=== PATIENT | female | born 1975 ===

== ENCOUNTER 2017-11-15 13:03 | Emergency (ER) | payer OTHER ==
[2017-11-15] MEDS ORDERED: Sodium Chloride 0.9% 1,000 ML IV STA (13:54)
[2017-11-15 14:36] LABS: SQUAMOUS EPITHIAL < 1 /hpf (0-5); URINE BILIRUBIN NEGATIVE (NEGATIVE); URINE BLOOD SMALL (NEGATIVE); URINE CLARITY SLIGHTY-CLOUDY (Clear); URINE COLOR YELLOW (YELLOW); URINE GLUCOSE (UA) NEG (Normal); URINE LEUKOCYTE ESTERASE NEG Leu/uL (Negative); URINE PROTEIN NEGATIVE (NEGATIVE); URINE UROBILINOGEN 0.2-1.0 mg/dL (0.2-1.0)
[2017-11-15 14:45] LABS: ALT/SGPT 19 U/L (9-52); AST/SGOT 17 U/L (14-36); BLOOD UREA NITROGEN 11 mg/dl (7-17); CALCIUM 9.3 mg/dL (8.4-10.2); GFR NON-AFRICAN AMERICAN > 60
[2017-11-15 15:01] LABS: BASO % 0.4 % (0.0-2.0); EOS # 0.2 K/uL (0.0-0.7); EOS % 2.5 % (0.0-4.0); HEMOGLOBIN 12.1 g/dL (12.0-16.0); LYMPH # 2.1 K/uL (1.0-4.3); MEAN CELL VOLUME 92.3 fl (81.0-99.0); MEAN CORPUSCULAR HEMOGLOBIN 31.4 pg (27.0-31.0); MEAN PLATELET VOLUME 9.2 fl (7.2-11.7); MONO # 0.4 K/uL (0.0-0.8); MONO % 4.9 % (0.0-10.0); NEUT # 5.9 K/uL (1.8-7.0); NEUT % 68.2 % (50.0-75.0); NRBC % 0.1 % (0.0-0.0); RBC 3.86 Mil/uL (3.80-5.20); RED CELL DISTRIBUTION WIDTH 12.8 % (11.5-14.5); WHITE BLOOD COUNT 8.7 K/uL (4.8-10.8)
[2017-11-15 17:31] VITALS: TEMP 97.6; O2SAT 98
--- NOTE | 2017-11-15 17:33 | US ---
Date of service: 11/15/2017 PROCEDURE: Ultrasound of the Kidneys HISTORY: LEFT FLANK PAIN R/O HYDRONEPHROSIS COMPARISON: None available. TECHNIQUE: Sonogram of the kidneys. FINDINGS: RIGHT KIDNEY: Measures: 12.2 x 5.6 x 4.3 cm. Normal in size, contour and echogenicity. No stone, solid mass lesion or hydronephrosis visualized. LEFT KIDNEY: Measures: 10.3 x 3.2 x 4.1 cm. Normal in size, contour and echogenicity. No stone, solid mass lesion or hydronephrosis visualized. OTHER FINDINGS: None. IMPRESSION: Unremarkable renal sonogram.
--- NOTE | 2017-11-15 17:33 | US ---
Date of service: 11/15/2017 HISTORY: EVALUATE FOR OVARIAN CYST COMPARISON: None available. TECHNIQUE: Grayscale, color Doppler and spectral evaluation the pelvis performed transvaginally FINDINGS: UTERUS: Measures 9.6 x 4.8 x 6.9 cm. It. Normal in size and appearance. Multiple fibroids, the largest include 2.1 x 2.2 x 2.7 cm posterior submucosal fibroid and 1.9 x 1.1 x 1.8 cm anterior intramural fibroid. ENDOMETRIUM: Measures 10 mm in diameter. Unremarkable. CERVIX: No cervical abnormality identified. RIGHT OVARY: Measures 4.1 x 2.4 x 3.4 cm. Dominant follicle measuring up to 1.3 cm. Normal flow. LEFT OVARY: Measures 3.1 x 1.0 x 3.2 cm. Dominant follicle measuring up to 1.2 cm. Normal flow. FREE FLUID: No significant free fluid noted. OTHER FINDINGS: None. IMPRESSION: Multi fibroid uterus. Bilateral ovarian dominant follicles measuring up to 1.3 cm.
--- NOTE | 2017-11-15 17:54 | ED PDOC ---
HPI: General Adult Time Seen by Provider: 11/15/17 16:30 Chief Complaint (Nursing): Female Genitourinary Chief Complaint (Provider): ABDOMINAL PAIN History Per: Patient (42 Y/O FEMALE H/O LAPAROSCOPIC OVARIAN CYST REMOVAL RIGHT LOWER ABD HERE FOR LLQ PAIN X 2 DAYS ASSOCIATED WITH MILD CONSTIPATION. NO FEVERS/CHILLS/NO VOMITING/NO DIARRHEA. DENEIS ANY DYSURIA. ) Past Medical History Reviewed: Historical Data, Nursing Documentation, Vital Signs Vital Signs: Last Vital Signs Temp 97.6 F 11/15/17 16:00 Pulse 69 11/15/17 19:20 Resp 18 11/15/17 19:20 BP 136/74 11/15/17 19:20 Pulse Ox 98 11/19/17 02:59 - Surgical History Surgical History: Back Surgery - Family History Family History: States: No Known Family Hx - Allergies Allergies/Adverse Reactions: Allergies Allergy/AdvReac Type Severity Reaction Status Date / Time No Known Allergies Allergy Verified 11/15/17 13:30 Review of Systems ROS Statement: Except As Marked, All Systems Reviewed And Found Negative Physical Exam - Reviewed Nursing Documentation Reviewed: Yes Vital Signs Reviewed: Yes - Physical Exam Appears: Positive for: Well, Non-toxic, No Acute Distress Head Exam: Positive for: ATRAUMATIC, NORMAL INSPECTION, NORMOCEPHALIC Skin: Positive for: Normal Color, Warm, DRY Eye Exam: Positive for: EOMI, Normal appearance, PERRL ENT: Positive for: Normal ENT Inspection Neck: Positive for: Normal, Painless ROM Cardiovascular/Chest: Positive for: Regular Rate, Rhythm Respiratory: Positive for: CNT, Normal Breath Sounds Gastrointestinal/Abdominal: Positive for: Normal Exam, Soft, Tenderness (LUQ/LLQ TENDERNESS/LEFT FLANK) Back: Positive for: Normal Inspection Extremity: Positive for: Normal ROM Neurologic/Psych: Positive for: Alert, Oriented - Laboratory Results Result Diagrams: 11/15/17 14:00 11/15/17 14:00 Urine POC: Negative Urine dip results: Positive for: Leukocyte Esterase. Negative for: Blood, Nitrate, Ketones, Glucose, Bilirubin - ECG O2 Sat by Pulse Oximetry: 98 - Progress ED Course And Treament: NS 1 LITER WIDE OPEN US RENAL: IMPRESSION: Unremarkable renal sonogram. US TRANSVAGINAL: IMPRESSION: Multi fibroid uterus. Bilateral ovarian dominant follicles measuring up to 1.3 cm. PATIENT NOTED IMPROVED IN ED. RE-EVALUATED. NOTES IMPROVEMENT OF DISCOMFORT BUT REQUESTS CT ABDOMEN FOR EVALUATION OF LLQ PAIN Disposition - Clinical Impression Clinical Impression: Uterine fibroid - Patient ED Disposition Is Patient to be Admitted: Transfer of Care - Disposition Disposition: Transfer of Care Disposition Time: 20:15 Condition: IMPROVED Instructions: Uterine Fibroids Forms: [facility] (Welsh) Patient Signed Over To: Meredith Rebolledo Handoff Comments: PENDING CT RESULTS
[2017-11-15 19:22] VITALS: BP 136/74; PULSE 69; RESP 18
[2017-11-15] MEDS ORDERED: Iohexol 300 100 ML IJ ONE (19:35)
[2017-11-15] MEDS ORDERED: Sodium Chloride 0.9% 50 ML IV ONE (19:35)
--- NOTE | 2017-11-15 20:48 | ED PDOC ---
- Laboratory Results Result Diagrams: 11/15/17 14:00 11/15/17 14:00 Urine POC: Negative - ECG O2 Sat by Pulse Oximetry: 98 - Progress ED Course And Treament: Case endorsed to remote mortgage underwriter from [employer] [facility] pending CT CT report shows: "small amount of pelvic free fluid, uterine leiomyomata, no other acute intra-abdominal or pelvic abnormality" On re-eval, patient resting comfortably; states no pain currently Patient educated on findings, discharged with instructions to follow up House Mother in 2 -3 days Advised NSAIDs PRN pain Return precautions given Disposition - Clinical Impression Clinical Impression: Uterine fibroid - POA Present On Arrival: None - Disposition Disposition: Routine/Home Disposition Time: 20:48 Condition: IMPROVED Instructions: Uterine Fibroids Forms: [facility] ([place]i)
--- NOTE | 2017-11-16 12:36 | CT ---
Date of service: 11/15/2017 PROCEDURE: CT Abdomen and Pelvis with contrast HISTORY: R/O DIVERTICULITIS LLQ PAIN COMPARISON: None. TECHNIQUE: Contrast dose: 90 mL Omnipaque 300 Radiation dose: Total exam DLP = 686.6 mGy-cm. This CT exam was performed using one or more of the following dose reduction techniques: Automated exposure control, adjustment of the mA and/or kV according to patient size, and/or use of iterative reconstruction technique. FINDINGS: LOWER THORAX: Unremarkable. LIVER: Unremarkable. No gross lesion or ductal dilatation. GALLBLADDER AND BILE DUCTS: Unremarkable. PANCREAS: Unremarkable. No gross lesion or ductal dilatation. SPLEEN: Unremarkable. ADRENALS: Unremarkable. No mass. KIDNEYS AND URETERS: Unremarkable. No hydronephrosis. No solid mass. VASCULATURE: Unremarkable. No aortic aneurysm. BOWEL: Unremarkable. No obstruction. No gross mural thickening. APPENDIX: Normal appendix. PERITONEUM: Unremarkable. No free fluid. No free air. LYMPH NODES: Unremarkable. No enlarged lymph nodes. BLADDER: Unremarkable. REPRODUCTIVE: Multi fibroid uterus. Trace pelvic fluid, likely physiologic. BONES: No acute fracture. OTHER FINDINGS: None. IMPRESSION: No acute abdominal pelvic pathology. Multi fibroid uterus. Additional findings as above.
== END 2017-11-15 21:22 | disposition home or self-care (01) ==
LOC: H.ER 13:03
DX: D25.9 Leiomyoma of uterus, unspecified (principal)
CPT/HCPCS: 74177; 76770; 76830; 80053; 81003; 81025; 83690; 85025; 87086; 99285; J7030; Q9967